=== PATIENT | male | born 1990 | race Two or more races ===

== ENCOUNTER 2025-01-19 15:20 | Inpatient (IN) | payer MEDICAID, OTHER ==
[~2025-01-19] VITALS: Ht 175.3 cm; Wt 115.0 kg
[2025-01-19] MEDS: HYDROcodone-ACET 5/325MG TAB PO ONE (15:45)
--- NOTE | 2025-01-19 15:52 | ED.PDOC ---
HPI (NEURO) HPI Comments This is a 34-year-old male with past medical history of seizure came to the hospital status post seizure. Per patient's , he was standing which suddenly start mumbling, and subsequently lost consciousness, fell and hit isn't on the ground. Per patient, he starts seeing flashes and subsequently lost consciousness. Per patient's , his eyes rolled back, but did not have jerky movement, no urine loss, and did not bite his tongue. Per patient he has recently under stress. He has seizure since 2 years. He also reports of mild headache and generalized weakness. He had denies fever, chest pain, shortness of breath, or any motor/sensory deficits. Home meds: Keppra 750 mg b.i.d., lamotrigine 200 mg b.i.d., Eslicarbamazepine 800 mg daily Social history: Denies smoking or any other drug use Chief Complaint: Seizure Time Seen by MD: 15:27 Mode of Arrival: Ambulatory Past Medical History Past Medical History (Other): Seizure Physical Exam General Appearance: No Apparent Distress, Normal HEENT: Normal ENT Inspection, Pharynx Normal, TMs Normal Neck: Full Range of Motion, Non-Tender, Normal, Normal Inspection Respiratory: Chest Non-Tender, Lungs Clear, No Accessory Muscle Use, No Respiratory Distress, Normal Breath Sounds Cardiovascular: No Edema, No JVD, No Murmur, No Gallop, Normal Peripheral Pulses, Regular Rate/Rhythm Breast Exam: Deferred Gastrointestinal: No Organomegaly, Non Tender, No Pulsatile Mass, Normal Bowel Sounds, Soft Genitalia: Deferred Pelvic: Deferred Rectal: Deferred Extremities: No calf tenderness, Normal capillary refill, Normal inspection, Normal range of motion, Non-tender, No pedal edema Musculoskeletal : Apperance: Normal Neurologic: Alert, tour consultant II-XII nml as Tested, No Motor Deficits, Normal Affect, Normal Mood, No Sensory Deficits Cerebellar Function: Normal Reflexes: Normal Skin: Dry, Normal Color, Warm Lymphatic: No Adenopathy Was a procedure done? Was a procedure done?: No Differential Diagnosis (SZ) Seizure: Encephalopathy, Epilepsy-Break Through X-Ray, Labs, Meds, VS Vital Signs Date Time Temp Pulse Resp B/P (MAP) Pulse Ox O2 Delivery O2 Flow Rate FiO2 01/19/25 17:11 67 01/19/25 16:36 70 22 96 Nasal Cannula* 2 28 01/19/25 16:36 70 22 117/72 (87) 96 01/19/25 16:15 Room Air* 0 21 01/19/25 15:21 98.1 59 18 131/76 95 98.1 Lab Test 01/19/25 17:56 01/19/25 16:28 Range/Units Urine Color Colorless Yellow Urine Clarity Clear Clear Urine pH 6.5 5.0-9.0 Urine Specific [place] 1.013 1.001-1.035 Urine Protein Negative Negative Urine Ketones Negative Negative Urine Blood Negative Negative /uL Urine Nitrite Negative Negative Urine Bilirubin Negative Negative Urine Urobilinogen Normal Negative mg/dL Urine Leukocyte Esterase Negative Negative /uL Urine RBC None seen 0 - 3 /hpf Urine Microscopic WBC 0-3 /HPF Urine Squamous Epithelial Cells None seen <5 /hpf Urine Bacteria None seen None Seen /hpf Urine Glucose Normal Normal mg/dL Urine Opiates Screen Neg NEGATIVE Urine Fentanyl Screen Neg NEGATIVE Urine Barbiturates Screen Neg NEGATIVE Urine Phencyclidine Screen Neg NEGATIVE Urine Amphetamines Screen Neg NEGATIVE Urine Benzodiazepines Screen Neg NEGATIVE Urine Cocaine Screen Neg NEGATIVE Urine Cannabinoids Screen Neg NEGATIVE White Blood Count 7.9 4.4-10.8 10^3/uL Red Blood Count 4.42 L 4.5-5.90 10^6/uL Hemoglobin 13.5 13.5-17.5 g/dL Hematocrit 39.0 L 41.0-53.0 % Mean Corpuscular Volume 88.2 80.0-100.0 fL Mean Corpuscular Hemoglobin 30.4 28.0-32.0 pg Mean Corpuscular Hemoglobin Concent 34.5 32.0-36.0 g/dL Red Cell Distribution Width 12.7 11.8-14.3 % Platelet Count 268 140-450 10^3/uL Mean Platelet Volume 7.1 6.9-10.8 fL Neutrophils (%) (Auto) 69.8 37.0-80.0 % Lymphocytes (%) (Auto) 21.0 10.0-50.0 % Monocytes (%) (Auto) 6.9 0.0-12.0 % Eosinophils (%) (Auto) 1.8 0.0-7.0 % Basophils (%) (Auto) 0.5 0.0-2.0 % Neutrophils # (Auto) 5.5 1.6-8.6 10 ^3/uL Lymphocytes # (Auto) 1.7 0.4-5.4 10 ^3/uL Monocytes # (Auto) 0.5 0-1.3 10 ^3/uL Eosinophils # (Auto) 0.1 0-0.8 10 ^3/uL Basophils # (Auto) 0 0-0.2 10 ^3/uL Nucleated Red Blood Cells 0.0 % Sodium Level 142 136-145 mmol/L Potassium Level 3.7 3.5-5.1 mmol/L Chloride Level 106 98-107 mmol/L Carbon Dioxide Level 29 20-31 mmol/L Anion Gap 7 5-15 Blood Urea Nitrogen 14 9-23 mg/dL Creatinine 0.96 0.700-1.30 mg/dL Glomerular Filtration Rate Calc 105 >90 mL/min BUN/Creatinine Ratio 14.6 10.0-20.0 Serum Glucose 112 H 74-106 mg/dL Calcium Level 8.9 8.7-10.4 mg/dL Magnesium Level 2.2 1.6-2.6 mg/dL Total Bilirubin 0.2 0.2-1.0 mg/dL Aspartate Amino Transferase (AST) 28 13-40 U/L Alanine Aminotransferase (ALT) 38 7-40 U/L Alkaline Phosphatase 62 46-116 U/L Total Protein 7.1 5.7-8.2 g/dL Albumin 4.3 3.2-4.8 g/dL Plasma/Serum Blood Alcohol < 3.0 <10 mg/dL Current Medications Medications (Trade) Dose Ordered Sig/Chris Route Start Time Stop Time Status Last Admin Lorazepam (Ativan Inj) 1 mg Q5MINP PRN IV 01/19/25 15:45 01/19/25 16:26 Levetiracetam 100 ml @ 400 mls/hr ONCE ONCE IV 01/19/25 15:45 01/19/25 16:11 DC 01/19/25 16:27 Acetaminophen/ Hydrocodone Bitart ([place] 5/325MG Tab) 1 tab ONCE ONCE PO 01/19/25 15:45 01/19/25 16:11 DC 01/19/25 15:45 Sodium Chloride 1,000 ml @ 1,000 mls/hr Q1H ONCE IV 01/19/25 15:45 01/19/25 16:44 DC 01/19/25 16:26 Time of 1ST Reevaluation: 17:00 Reevaluation 1ST: Unchanged Patient Education/Counseling: Diagnosis, Treatment, Prognosis, Need For Follow Up Family Education/Counseling: Diagnosis, Treatment, Prognosis, Need For Follow Up Comments Patient came to the hospital due to seizure. Patient was vitally stable. Patient was complaining of headache. Head CT scan performed. CBC and CMP checked. Patient was given Keppra, [place] and IV fluid Patient will be admitted for further management/workup in hospital. Departure 1 Departure Time of Disposition: 19:00 Impression: Primary Impression: Breakthrough seizure Disposition: ADMITTED INPATIENT Admit to: Tele Condition: Guarded Critical Care Note Critical Care Time?: No Stability Stability form required: No Heart Score Heart Score: Heart Score Response (Comments) Value History N/A 0 EKG N/A 0 Age N/A 0 Risk Factors N/A 0 Troponin N/A 0 Total 0 KARON LEONARD Jan 19, 2025 15:52
--- NOTE | 2025-01-19 16:24 | DVH ---
EXAM: CT HEAD WITHOUT CONTRAST INDICATION: fall TECHNIQUE: CT images of the head were obtained without administration of IV contrast. CT scans at [facility] facility use dose modulation, iterative reconstruction, and/or weight based dosing when appropriate to reduce radiation dose to as low as reasonably achievable. COMPARISON: None FINDINGS: PARENCHYMA: No acute hemorrhage. There is no mass effect, midline shift, or herniation. There is pres ervation of the zacarias white differentiation. Mild scattered hypoattenuation along the periventricular, centrum semiovale, and deep white matter tracts, which are nonspecific however statistically most li amy represent chronic microvascular ischemic change. VENTRICLES: No hydrocephalus. EXTRA-AXIAL SPACES: No extra-axial fluid collections. OTHER: The bony structures are intact. Visualized portions of the paranasal sinuses and mastoid air cells are clear. IMPRESSION: 1. No CT evidence of an acute intracranial abnormality.
[2025-01-19] MEDS: SODIUM CHLORIDE 0.9% 1,000 ML IV ONE (16:26)
[2025-01-19] MEDS: LORazepam 2MG/ML-1ML VIAL IV PRN (16:26)
[2025-01-19] MEDS: levETIRAcetam 1000 mg/100ml 100 ML IV ONE (16:27)
[2025-01-19 16:36] VITALS: PULSE 70; RESP 22; O2SAT 96
[2025-01-19 16:50] LABS: Hematocrit 39.0 % (41.0-53.0); Hemoglobin 13.5 g/dL (13.5-17.5); Mean Corpuscular Hemoglobin 30.4 pg (28.0-32.0); Mean Corpuscular Volume 88.2 fL (80.0-100.0); Nucleated Red Blood Cells % 0.0 %
[2025-01-19 17:04] LABS: Alanine Aminotransferase 38 U/L (7-40); Albumin 4.3 g/dL (3.2-4.8); Alkaline Phosphatase 62 U/L (46-116); Anion Gap 7 (5-15); BUN/Creatinine Ratio 14.6 (10.0-20.0); Blood Urea Nitrogen 14 mg/dL (9-23); Calcium 8.9 mg/dL (8.7-10.4); Carbon Dioxide 29 mmol/L (20-31); Chloride 106 mmol/L (98-107); Magnesium 2.2 mg/dL (1.6-2.6); Potassium 3.7 mmol/L (3.5-5.1); Sodium 142 mmol/L (136-145); Total Protein 7.1 g/dL (5.7-8.2)
[2025-01-19 17:05] LABS: Bilirubin, Total 0.2 mg/dL (0.2-1.0); Glucose 112 mg/dL (74-106)
[2025-01-19 18:24] LABS: Urine Protein, UAD Negative (Negative)
[2025-01-19 18:38] LABS: Opiate Scree,Urine Neg (NEGATIVE)
[2025-01-19 18:39] LABS: Amphetamine Screen, Urine Neg (NEGATIVE); Barbiturate Scree,Urine Neg (NEGATIVE); Benzodiazephine Screen, Urine Neg (NEGATIVE); Cannabinoid Screen, Urine Neg (NEGATIVE); Cocaine Screen, Urine Neg (NEGATIVE); Phencyclidine Screen, Urine Neg (NEGATIVE)
[2025-01-19] MEDS ORDERED: ONDANSETRON HCL 4 MG/2 ML VIAL IV PRN (19:45)
[2025-01-19] MEDS ORDERED: TEMAZEPAM 15 MG CAP PO PRN (19:45)
[2025-01-19] MEDS ORDERED: levETIRAcetam 500 MG TAB PO SCH (22:00)
[2025-01-19] MEDS ORDERED: lamoTRIgine 100 MG TAB PO SCH (22:00)
--- NOTE | 2025-01-19 22:02 | ECG ---
[facility] Test Date: 2025-01-19 Test Time: 17:11:09 Pat Name: NIKKI HUMPHREYS Department: Room: 0276 Gender: M [employer]: NIKITA : 1990 Requested By: KARON LEONARD Order Number: [id number] Reading MD: Adilson Uriostegui Measurements Intervals [place] Rate: 67 P: 11 LA: 158 QRS: 3 QRSD: 91 T: 18 QT: 413 QTc: 436 Interpretive Statements Sinus rhythm Electronically Signed On 01-26-2025 19:02:26 PDT by Adilson Uriostegui Please click the below link to view image of tracing.
[2025-01-19] MEDS: levETIRAcetam 500 MG TAB PO SCH ×2 (22:05→22:54)
[2025-01-19] MEDS: lamoTRIgine 100 MG TAB PO SCH (22:06)
--- NOTE | 2025-01-19 22:35 | DVHINCON2 ---
Date of service: Jan 19, 2025 Referring Physician Yannick Reason for Consultation Seizure History of Present Illness Mr. Tong is a 34 years old right-handed gentleman with a history of seizure disorder, he was brought to the [facility] on 01/19/2025 with a chief complaint of seizure activity. At that time he is alert and fully oriented, but he does not remember what happened today. The following history is obtained from him self and his girlfriend On 01/19/2025, when he was with his girlfriend, he suddenly mumble words, followed by falling down, and he has eyes deviated to the upper right corner, with nonresponsiveness or convulsion. The event was about 35 to 45 seconds, and the patient was confused for a few minutes before he was mentally recovered He has had similar events since 2014, this is his five days with similar symptoms in 2024. He saw a neurologist before, and he is on Keppra 750 mg b.i.d., lamotrigine 200 mg b.i.d., Eslicarbamazepine 800 mg daily. He denies treatment side effects. He reports a good compliance, he has no acute illness recently He denies a history of traumatic brain injury, intracranial infection One sister had seizure, which has completely resolved UDS, 01/19/2025: Negative Plasma alcohol, 01/19/2025: Less than three CBC, 01/19/2025: Unremarkable CMP, 01/19/2025: Unremarkable CT head, 01/19/2025: No CT evidence of an acute intracranial abnormality. Past Medical History Seizure Past Surgical History No surgeries Family History Diabetes, seizure Social History He was a tobacco smoker, no history of drug/alcohol abuse, he does not drive Allergies: Coded Allergies: NO KNOWN ALLERGIES (Unverified , 01/19/25) Current Medications Current Medications Medications (Trade) Dose Ordered Sig/Chris Route PRN Reason Start Time Stop Time Status Last Admin Lorazepam (Ativan Inj) 1 mg Q5MINP PRN IV SEIZURES 01/19/25 15:45 01/19/25 16:26 Levetiracetam (Keppra Tablet) 750 mg BID PO 01/19/25 22:00 01/19/25 19:45 DC Lamotrigine (LaMICtal TABLET) 200 mg Q12HR PO 01/19/25 22:00 01/19/25 19:45 DC Patient Own Medication 1 DAILY PO 01/20/25 10:00 01/19/25 19:50 DC Levetiracetam (Keppra Tablet) 750 mg BID PO 01/19/25 22:00 01/19/25 22:05 Lamotrigine (LaMICtal TABLET) 200 mg Q12HR PO 01/19/25 22:00 01/19/25 22:06 Patient Own Medication 800 mg DAILY PO 01/20/25 10:00 Temazepam (Restoril) 15 mg QHSP PRN PO FOR INSOMNIA 01/19/25 19:45 Ondansetron HCl (Zofran) 4 mg Q4HP PRN IV NAUSEA / VOMITING 01/19/25 19:45 Acetaminophen (Tylenol Tablet) 650 mg Q6HP PRN PO PAIN SCALE 1-3 OR TEMP>100.4 01/19/25 19:45 Review of Systems As above, the other systems are negative Vital Signs Vital Signs Date Time Temp Pulse Resp B/P (MAP) Pulse Ox O2 Delivery O2 Flow Rate FiO2 01/19/25 20:00 75 01/19/25 19:30 Room Air* 0 21 01/19/25 18:00 29 108/61 (77) 99 01/19/25 15:21 98.1 98.1 Physical Exam GENERAL EXAM: General: the patient is well developed and nourished. No acute distress. HEENT: Normocephalic, neck is supple, no carotid bruits. No mass. RESPIRATORY: Normal respiratory effort with symmetrical lung expansion. Lungs clear to auscultation. CARDIOVASCULAR: Regular rate and rhythm with no murmurs. S1, S2. ABDOMEN: Soft, nontender, normal bowel sound NEUROLOGICAL: MENTAL STATUS: Awake and alert. Oriented to person, place, time and general circumstances. Able to give personal history SPEECH, LANGUAGE, HIGHER CORTICAL FUNCTION: no aphasia or dysathria. CRANIAL NERVES: #2: Intact visual marrero to confrontation. The optic discs were sharp #3,4,6: Pupils are equal, round and reactive. EOMs full and conjugate. No nystagmus. #5: Facial sensation intact in all three divisions bilaterally. Mandibular strength intact. #7: Facial muscles symmetrical and strength intact. #8: Hearing grossly normal to voice. #9,10: Uvula and soft palate rise in the midline. Swallow and voice are normal. #11: Trapezius and sternomastoid strength intact bilaterally. #12: Tongue midline. No fasciculations or atrophy. SENSATION: Sensation to touch and pinprick is normal. MOTOR: Normal tone in the upper and lower extremity. Normal muscle bulk. No fasciculations. No abnormal movements or posturing. Muscle strength of the major groups in the upper extremities is 5/5. Muscle strength of the major groups in the lower extremities is 5/5. REFLEXES: Deep tendon reflexes normal and symmetrical. No pathological reflexes. CEREBELLAR/COORDINATION: Finger to nose and heel to [place] are normal bilaterally. GAIT/STATION: deferred. Labs/Diagnostic Data Labs Test 01/19/25 17:56 01/19/25 16:28 Range/Units Urine Color Colorless Yellow Urine Clarity Clear Clear Urine pH 6.5 5.0-9.0 Urine Specific [place] 1.013 1.001-1.035 Urine Protein Negative Negative Urine Ketones Negative Negative Urine Blood Negative Negative /uL Urine Nitrite Negative Negative Urine Bilirubin Negative Negative Urine Urobilinogen Normal Negative mg/dL Urine Leukocyte Esterase Negative Negative /uL Urine RBC None seen 0 - 3 /hpf Urine Microscopic WBC 0-3 /HPF Urine Squamous Epithelial Cells None seen <5 /hpf Urine Bacteria None seen None Seen /hpf Urine Glucose Normal Normal mg/dL Urine Opiates Screen Neg NEGATIVE Urine Fentanyl Screen Neg NEGATIVE Urine Barbiturates Screen Neg NEGATIVE Urine Phencyclidine Screen Neg NEGATIVE Urine Amphetamines Screen Neg NEGATIVE Urine Benzodiazepines Screen Neg NEGATIVE Urine Cocaine Screen Neg NEGATIVE Urine Cannabinoids Screen Neg NEGATIVE White Blood Count 7.9 4.4-10.8 10^3/uL Red Blood Count 4.42 L 4.5-5.90 10^6/uL Hemoglobin 13.5 13.5-17.5 g/dL Hematocrit 39.0 L 41.0-53.0 % Mean Corpuscular Volume 88.2 80.0-100.0 fL Mean Corpuscular Hemoglobin 30.4 28.0-32.0 pg Mean Corpuscular Hemoglobin Concent 34.5 32.0-36.0 g/dL Red Cell Distribution Width 12.7 11.8-14.3 % Platelet Count 268 140-450 10^3/uL Mean Platelet Volume 7.1 6.9-10.8 fL Neutrophils (%) (Auto) 69.8 37.0-80.0 % Lymphocytes (%) (Auto) 21.0 10.0-50.0 % Monocytes (%) (Auto) 6.9 0.0-12.0 % Eosinophils (%) (Auto) 1.8 0.0-7.0 % Basophils (%) (Auto) 0.5 0.0-2.0 % Neutrophils # (Auto) 5.5 1.6-8.6 10 ^3/uL Lymphocytes # (Auto) 1.7 0.4-5.4 10 ^3/uL Monocytes # (Auto) 0.5 0-1.3 10 ^3/uL Eosinophils # (Auto) 0.1 0-0.8 10 ^3/uL Basophils # (Auto) 0 0-0.2 10 ^3/uL Nucleated Red Blood Cells 0.0 % Sodium Level 142 136-145 mmol/L Potassium Level 3.7 3.5-5.1 mmol/L Chloride Level 106 98-107 mmol/L Carbon Dioxide Level 29 20-31 mmol/L Anion Gap 7 5-15 Blood Urea Nitrogen 14 9-23 mg/dL Creatinine 0.96 0.700-1.30 mg/dL Glomerular Filtration Rate Calc 105 >90 mL/min BUN/Creatinine Ratio 14.6 10.0-20.0 Serum Glucose 112 H 74-106 mg/dL Calcium Level 8.9 8.7-10.4 mg/dL Magnesium Level 2.2 1.6-2.6 mg/dL Total Bilirubin 0.2 0.2-1.0 mg/dL Aspartate Amino Transferase (AST) 28 13-40 U/L Alanine Aminotransferase (ALT) 38 7-40 U/L Alkaline Phosphatase 62 46-116 U/L Total Protein 7.1 5.7-8.2 g/dL Albumin 4.3 3.2-4.8 g/dL Plasma/Serum Blood Alcohol < 3.0 <10 mg/dL Assessment Partial complex seizure, poorly controlled Plan/Recommendation Monitoring [facility] Increase the Keppra to 1000 mg b.i.d. Lamotrigine 200 mg b.i.d. Eslicarbamazepine 800 mg daily Regular speak schedule to avoid sleep deprivation No alcohol No three strokes Avoid skipping medications He does not drive More recommendation per clinical course Prognosis: Poor This medical document was created using an electronic medical record system with [employer] computerized dictation system. Although this document has been carefully reviewed, there may still be some phonetic and typographical errors. These areas are purely typographical due to imperfections of the software programs, and do not reflect any compromise in the patient's medical care. Plan discussed with: Patient, Spouse, Other ARNOLDO SMITH MD Jan 19, 2025 22:35
--- NOTE | 2025-01-19 22:43 | DVHHP2 ---
History of Present Illness Reason for Visit: Seizure History of Present Illness 34-year-old male presents for evaluation of seizure activity. Patient had a witnessed seizure lasting approximately 45 seconds. Patient states patient was at the dinner table speaking with her when he fell to the ground hitting his hea d and his eyes just rolled back. No oral trauma or incontinence. Patient had another seizure five days ago. He reports being compliant with his antiseizure medications. Past Medical History Seizure Past Surgical History Denies Family History Noncontributory Smoke: No ALCOHOL: none Drugs: None Lives: with Family Review of Systems Review of Systems Review of systems are currently negative otherwise addressed in HPI. Allergies: Coded Allergies: NO KNOWN ALLERGIES (Unverified , 01/19/25) Medications Current Medications Medications Dose Ordered Sig/Chris Route Start Time Stop Time Status Last Admin Dose Admin Lorazepam 1 mg Q5MINP PRN IV 01/19/25 15:45 01/19/25 16:26 1 MG Lamotrigine 200 mg Q12HR PO 01/19/25 22:00 01/19/25 22:06 200 MG Patient Own Medication 800 mg DAILY PO 01/20/25 10:00 Temazepam 15 mg QHSP PRN PO 01/19/25 19:45 Ondansetron HCl 4 mg Q4HP PRN IV 01/19/25 19:45 Acetaminophen 650 mg Q6HP PRN PO 01/19/25 19:45 Levetiracetam 1,000 mg BID PO 01/19/25 22:30 Exam Vital Signs Vital Signs Date Time Temp Pulse Resp B/P (MAP) Pulse Ox O2 Delivery O2 Flow Rate FiO2 01/19/25 22:00 57 22 114/35 (61) 95 01/19/25 20:00 98.1 98.1 01/19/25 19:30 Room Air* 0 21 Exam Gen: 34-year-old male in mild distress. Skin: Warm, dry, normal color and texture, no rash. HEENT: Normocephalic atraumatic, mucous membranes moist and pink. Neck: Cervical and supraclavicular nodes normal without enlargement, trachea is midline, thyroid gland is normal without masses. Pulmonary: Clear to auscultation and percussion bilaterally. Cardiac: Regular rate and rhythm. No murmur Abdomen: Soft, nontender, nondistended, bowel sounds present all 4 quadrants, no guarding, no rigidity, no organomegaly. Extremities: No cyanosis, clubbing, no edema Neuro: Cranial nerves II through XII grossly intact, normal affect and speech, no focal motor deficits. Labs/Xrays ORDERING PHYSICIAN: KARON LEONARD PROCEDURE(s): HWOCT - HEAD WITHOUT CONTRAST REASON: fall ORDER NUMBER(s): [id number], ACCESSION NUMBER(s): [id number] EXAM: CT HEAD WITHOUT CONTRAST INDICATION: fall TECHNIQUE: CT images of the head were obtained without administration of IV contrast. CT scans at this facility use dose modulation, iterative reconstruction, and/or weight based dosing when appropriate to reduce radiation dose to as low as reasonably achievable. COMPARISON: None FINDINGS: PARENCHYMA: No acute hemorrhage. There is no mass effect, midline shift, or herniation. There is preservation of the zacarias white differentiation. Mild scattered hypoattenuation along the periventricular, centrum semiovale, and deep white matter tracts, which are nonspecific however statistically most likely represent chronic microvascular ischemic change. VENTRICLES: No hydrocephalus. EXTRA-AXIAL SPACES: No extra-axial fluid collections. OTHER: The bony structures are intact. Visualized portions of the paranasal sinuses and mastoid air cells are clear. IMPRESSION: 1. No CT evidence of an acute intracranial abnormality. Labs Test 01/19/25 17:56 01/19/25 16:28 Range/Units Urine Color Colorless Yellow Urine Clarity Clear Clear Urine pH 6.5 5.0-9.0 Urine Specific [place] 1.013 1.001-1.035 Urine Protein Negative Negative Urine Ketones Negative Negative Urine Blood Negative Negative /uL Urine Nitrite Negative Negative Urine Bilirubin Negative Negative Urine Urobilinogen Normal Negative mg/dL Urine Leukocyte Esterase Negative Negative /uL Urine RBC None seen 0 - 3 /hpf Urine Microscopic WBC 0-3 /HPF Urine Squamous Epithelial Cells None seen <5 /hpf Urine Bacteria None seen None Seen /hpf Urine Glucose Normal Normal mg/dL Urine Opiates Screen Neg NEGATIVE Urine Fentanyl Screen Neg NEGATIVE Urine Barbiturates Screen Neg NEGATIVE Urine Phencyclidine Screen Neg NEGATIVE Urine Amphetamines Screen Neg NEGATIVE Urine Benzodiazepines Screen Neg NEGATIVE Urine Cocaine Screen Neg NEGATIVE Urine Cannabinoids Screen Neg NEGATIVE White Blood Count 7.9 4.4-10.8 10^3/uL Red Blood Count 4.42 L 4.5-5.90 10^6/uL Hemoglobin 13.5 13.5-17.5 g/dL Hematocrit 39.0 L 41.0-53.0 % Mean Corpuscular Volume 88.2 80.0-100.0 fL Mean Corpuscular Hemoglobin 30.4 28.0-32.0 pg Mean Corpuscular Hemoglobin Concent 34.5 32.0-36.0 g/dL Red Cell Distribution Width 12.7 11.8-14.3 % Platelet Count 268 140-450 10^3/uL Mean Platelet Volume 7.1 6.9-10.8 fL Neutrophils (%) (Auto) 69.8 37.0-80.0 % Lymphocytes (%) (Auto) 21.0 10.0-50.0 % Monocytes (%) (Auto) 6.9 0.0-12.0 % Eosinophils (%) (Auto) 1.8 0.0-7.0 % Basophils (%) (Auto) 0.5 0.0-2.0 % Neutrophils # (Auto) 5.5 1.6-8.6 10 ^3/uL Lymphocytes # (Auto) 1.7 0.4-5.4 10 ^3/uL Monocytes # (Auto) 0.5 0-1.3 10 ^3/uL Eosinophils # (Auto) 0.1 0-0.8 10 ^3/uL Basophils # (Auto) 0 0-0.2 10 ^3/uL Nucleated Red Blood Cells 0.0 % Sodium Level 142 136-145 mmol/L Potassium Level 3.7 3.5-5.1 mmol/L Chloride Level 106 98-107 mmol/L Carbon Dioxide Level 29 20-31 mmol/L Anion Gap 7 5-15 Blood Urea Nitrogen 14 9-23 mg/dL Creatinine 0.96 0.700-1.30 mg/dL Glomerular Filtration Rate Calc 105 >90 mL/min BUN/Creatinine Ratio 14.6 10.0-20.0 Serum Glucose 112 H 74-106 mg/dL Calcium Level 8.9 8.7-10.4 mg/dL Magnesium Level 2.2 1.6-2.6 mg/dL Total Bilirubin 0.2 0.2-1.0 mg/dL Aspartate Amino Transferase (AST) 28 13-40 U/L Alanine Aminotransferase (ALT) 38 7-40 U/L Alkaline Phosphatase 62 46-116 U/L Total Protein 7.1 5.7-8.2 g/dL Albumin 4.3 3.2-4.8 g/dL Plasma/Serum Blood Alcohol < 3.0 <10 mg/dL SEPSIS Sepsis Screen Date sepsis recognized/suspect: Jan 19, 2025 Time Sepsis recognized/suspect: 1929 Recent Procedure: No On Antibiotic Therapy: No Respiratory Rate >20: No Heart Rate >90: No Temp<36 C (96.8 F) or >38.3 C: No SBP <90 or MAP <65 mmHG: No New Acute Mental Status Change: No Is the patient on CPAP, BIPAP,: No Physician Orders Head Without Contrast (01/19/25 15:31) Lorazepam 2mg/Ml Inj (Ativan Inj) (01/19/25 15:45) Lamotrigine Tablet (Lamictal Tablet) (01/19/25 22:00) (Nf) Eslicarbazepine Acetate (01/20/25 10:00) Regular Diet (01/20/25 Breakfast) Seizure Precautions (01/19/25 ) * Neurology Consult (01/19/25 19:36) Basic Metabolic Panel (01/20/25 04:00) Admit (01/19/25 19:36) Temazepam (Restoril) (01/19/25 19:45) Ondansetron Hcl (Zofran) (01/19/25 19:45) Condition: Stable (01/19/25 19:36) Acetaminophen Tablet (Tylenol Tablet) (01/19/25 19:45) Bedrest With Bathroom Privileg (01/19/25 19:36) Levetiracetam Tablet (Keppra Tablet) (01/19/25 22:30) Vital Signs Date Time Temp Pulse Resp B/P (MAP) Pulse Ox O2 Delivery O2 Flow Rate FiO2 01/19/25 22:00 57 22 114/35 (61) 95 01/19/25 20:00 75 01/19/25 20:00 98.1 60 19 114/35 (61) 93 98.1 01/19/25 19:30 Room Air* 0 21 01/19/25 18:00 79 29 108/61 (77) 99 01/19/25 17:11 67 01/19/25 16:36 70 22 96 Nasal Cannula* 2 28 01/19/25 16:36 70 22 117/72 (87) 96 01/19/25 16:15 Room Air* 0 21 01/19/25 15:21 98.1 59 18 131/76 95 98.1 Laboratory Tests Test 01/19/25 16:28 White Blood Count 7.9 10^3/uL (4.4-10.8) Medications Medications Dose Ordered Sig/Chris Route Start Time Stop Time Status Last Admin Dose Admin Acetaminophen/ Hydrocodone Bitart 1 tab ONCE ONCE PO 01/19/25 15:45 01/19/25 16:11 DC 01/19/25 15:45 1 TAB Lamotrigine 200 mg Q12HR PO 01/19/25 22:00 01/19/25 22:06 200 MG Levetiracetam 100 ml @ 400 mls/hr ONCE ONCE IV 01/19/25 15:45 01/19/25 16:11 DC 01/19/25 16:27 400 MLS/HR Levetiracetam 750 mg BID PO 01/19/25 22:00 01/19/25 22:31 DC 01/19/25 22:05 750 MG Lorazepam 1 mg Q5MINP PRN IV 01/19/25 15:45 01/19/25 16:26 1 MG Sodium Chloride 1,000 ml @ 1,000 mls/hr Q1H ONCE IV 01/19/25 15:45 01/19/25 16:44 DC 01/19/25 16:26 1,000 MLS/HR Assessment/Plan Assessment/Plan Assessment Breakthrough seizure Plan [facility] hospitalist Nephrology consultation Seizure precautions in place Resume home medications Continue treatment per orders Plan discussed with: Patient My Orders Orders - NIKKI RUBI Procedure Category Date Status Time Lamotrigine Tablet PHA 01/19/25 In Process (Lamictal Tablet) 22:00 (Nf) Eslicarbazepine PHA 01/20/25 In Process Acetate 10:00 Regular Diet DIET 01/20/25 Transmitted Breakfast Seizure Precautions ED NURSING 01/19/25 Transmitted * Neurology Consult CONS 01/19/25 Transmitted 19:36 Basic Metabolic Panel LAB 01/20/25 Verified 04:00 Admit ADMIT 01/19/25 Transmitted 19:36 Temazepam (Restoril) PHA 01/19/25 In Process 19:45 Ondansetron Hcl PHA 01/19/25 In Process (Zofran) 19:45 Condition: Stable JENNIFER 01/19/25 In Process 19:36 Acetaminophen Tablet PHA 01/19/25 In Process (Tylenol Tablet) 19:45 Bedrest With Bathroom JENNIFER 01/19/25 In Process Privileg 19:36 Date of Service: Jan 19, 2025 Billing Provider: NIKKI RUBI Common Visit Codes: [id number] INP/OBS CARE (HIGH) NIKKI RUBI Jan 19, 2025 22:43
[2025-01-19 22:55] VITALS: BP 110/83; PULSE 65; RESP 18; TEMP 97.2; O2SAT 96
[2025-01-19] MEDS ORDERED: LAMO200T2 PO (23:48)
[2025-01-19] MEDS ORDERED: LEVE500T40 PO (23:48)
[2025-01-19] MEDS ORDERED: ESLI1TAB4 PO (23:48)
[2025-01-20 01:00] VITALS: BP 110/56; PULSE 63; RESP 18; TEMP 97.4; O2SAT 95
[2025-01-20 05:01] VITALS: BP 114/67; PULSE 71; RESP 16; TEMP 98.3; O2SAT 96
[2025-01-20 08:30] VITALS: BP 114/80; PULSE 79; RESP 19; TEMP 97.9; O2SAT 95
[2025-01-20 09:38] LABS: Chloride 104 mmol/L (98-107); Potassium 4.1 mmol/L (3.5-5.1); Sodium 141 mmol/L (136-145)
[2025-01-20 09:39] LABS: Anion Gap 7 (5-15); Calcium 9.7 mg/dL (8.7-10.4); Carbon Dioxide 30 mmol/L (20-31)
[2025-01-20 09:44] LABS: BUN/Creatinine Ratio 9.2 (10.0-20.0); Blood Urea Nitrogen 9 mg/dL (9-23); Glucose 101 mg/dL (74-106)
[2025-01-20] MEDS: ESLICARBAZEPINE ACETATE 800 MG PO SCH (09:59)
[2025-01-20] MEDS ORDERED: PATIENTS OWN MEDICATION PO SCH (10:00)
--- NOTE | 2025-01-20 11:06 | DVHPN2 ---
Subjective The patient seen and examined at bedside. No seizure today. The patient compliance to medication at home. Reviewed: Care Plan, H&P, Labs, Medications, Previous Orders, Radiology Changes from previous H/P or p: No Changes Objective Vitals Vital Signs Date Time Temp Pulse Resp B/P (MAP) Pulse Ox O2 Delivery O2 Flow Rate FiO2 01/20/25 08:30 97.9 79 19 114/80 (91) 95 97.9 01/20/25 08:05 Room Air* 0 21 Intake/Output Intake and Output 01/20/25 07:00 Intake Total 1200 ml Balance 1200 ml Intake Oral 100 ml IV Total 1100 ml # Voids 1 General Appearance: Alert, Oriented X3, Cooperative, No acute distress HEENT: Atraumatic, PERRLA, EOMI, Mucous membr. moist/pink Neck: Supple Lungs: Clear to auscultation, Normal air movement Cardiovascular: Regular rate, Normal S1, Normal S2, No murmurs, Gallops, Rubs Abdomen: Normal bowel sounds, Soft, No tenderness Neuro: Cranial nerves 3-12 NL Psych/Mental Status: Mental status NL Medications Current Medications Medications Dose Ordered Sig/Chris Route Start Time Stop Time Status Last Admin Dose Admin Lorazepam 1 mg Q5MINP PRN IV 01/19/25 15:45 01/19/25 16:26 1 MG Lamotrigine 200 mg Q12HR PO 01/19/25 22:00 01/20/25 09:39 200 MG Patient Own Medication 800 mg DAILY PO 01/20/25 10:00 01/20/25 09:59 800 MG Temazepam 15 mg QHSP PRN PO 01/19/25 19:45 Ondansetron HCl 4 mg Q4HP PRN IV 01/19/25 19:45 Acetaminophen 650 mg Q6HP PRN PO 01/19/25 19:45 Levetiracetam 1,000 mg BID PO 01/19/25 22:30 01/20/25 09:39 1,000 MG Laboratory Results Laboratory Tests 01/19/25 16:28 01/20/25 09:00 Chemistry Test 01/19/25 16:28 01/20/25 09:00 Albumin 4.3 g/dL (3.2-4.8) Calcium Level 8.9 mg/dL (8.7-10.4) 9.7 mg/dL (8.7-10.4) Magnesium Level 2.2 mg/dL (1.6-2.6) Total Protein 7.1 g/dL (5.7-8.2) LFT Test 01/19/25 16:28 Alanine Aminotransferase (ALT) 38 U/L (7-40) Alkaline Phosphatase 62 U/L (46-116) Aspartate Amino Transferase (AST) 28 U/L (13-40) Total Bilirubin 0.2 mg/dL (0.2-1.0) Urinalysis Test 01/19/25 17:56 Urine Color Colorless (Yellow) Urine Clarity Clear (Clear) Urine pH 6.5 (5.0-9.0) Urine Specific [place] 1.013 (1.001-1.035) Urine Protein Negative (Negative) Urine Ketones Negative (Negative) Urine Blood Negative /uL (Negative) Urine Nitrite Negative (Negative) Urine Bilirubin Negative (Negative) Urine Urobilinogen Normal mg/dL (Negative) Urine Leukocyte Esterase Negative /uL (Negative) Urine RBC None seen /hpf (0 - 3) Urine Microscopic WBC /HPF (0-3) Urine Squamous Epithelial Cells None seen /hpf (<5) Urine Bacteria None seen /hpf (None Seen) Urine Glucose Normal mg/dL (Normal) Labs and/or images reviewed: Labs reviewed by me Assessment/Plan Assessment/Plan Breakthrough seizure COntinue current management. Increase keppra to 1000mg bid Continue lamictal 200mg daily Continue home med eslicarbarzepine Waiting for neurologist to see the patient. Plan discussed with: Patient Date of Service: Jan 20, 2025 Billing Provider: MARIANA SMITH MD Common Visit Codes: [id number] INP/OBS CARE(HIGH) MARIANA SMITH MD Jan 20, 2025 11:06
[2025-01-20 13:30] VITALS: BP 130/94; PULSE 82; RESP 18; TEMP 97.9; O2SAT 97
[2025-01-20 16:58] VITALS: BP 127/86; PULSE 97; RESP 18; TEMP 98.1; O2SAT 98
[2025-01-20] MEDS: ACETAMINOPHEN 325 MG TAB PO PRN (20:50)
[2025-01-20 21:00] VITALS: BP 117/77; PULSE 65; RESP 19; TEMP 97.3; O2SAT 96
--- NOTE | 2025-01-20 23:28 | DVHPN2 ---
Progress Note - Dictate Date Seen: Jan 20, 2025 Medical Necessity Reason Pt with a Central, PICC or Fol: No Subjective Mr. Tong is a 34 years old right-handed gentleman with a history of seizure disorder, he was brought to the [facility] on 01/19/2025 with a chief complaint of seizure activity. I have seen and examined the patient, discussed with his nurse, he is doing fine, no new complaint, no new seizure activity UDS, 01/19/2025: Negative Plasma alcohol, 01/19/2025: Less than three CBC, 01/19/2025: Unremarkable CMP, 01/19/2025: Unremarkable CT head, 01/19/2025: No CT evidence of an acute intracranial abnormality vital signs Vital Sign Date Time Temp Pulse Resp B/P (MAP) Pulse Ox O2 Delivery O2 Flow Rate FiO2 01/20/25 21:00 97.3 65 19 117/77 (90) 96 97.3 01/20/25 20:00 Room Air* 0 21 Total Intake and Output 01/19/25 01/19/25 01/20/25 15:00 23:00 07:00 Intake Total 1100 ml 100 ml Balance 1100 ml 100 ml medications Current Medications Medications Dose Ordered Sig/Chris Route Start Time Stop Time Status Last Admin Dose Admin Lorazepam 1 mg Q5MINP PRN IV 01/19/25 15:45 01/19/25 16:26 1 MG Lamotrigine 200 mg Q12HR PO 01/19/25 22:00 01/20/25 22:33 200 MG Patient Own Medication 800 mg DAILY PO 01/20/25 10:00 01/20/25 09:59 800 MG Temazepam 15 mg QHSP PRN PO 01/19/25 19:45 Ondansetron HCl 4 mg Q4HP PRN IV 01/19/25 19:45 Acetaminophen 650 mg Q6HP PRN PO 01/19/25 19:45 01/20/25 20:50 650 MG Levetiracetam 1,000 mg BID PO 01/19/25 22:30 01/20/25 22:34 1,000 MG objective General: the patient is well developed and nourished. No acute distress. MENTAL STATUS: Subjective SPEECH, LANGUAGE, HIGHER CORTICAL FUNCTION: no aphasia or dysathria. CRANIAL NERVES: Pupils are equal, round and reactive. EOMs full and conjugate. No nystagmus. Facial sensation intact in all three divisions bilaterally. Mandibular strength intact. Facial muscles symmetrical and strength intact. Tongue midline. No fasciculations or atrophy. SENSATION: Sensation to touch and pinprick is normal. MOTOR: Normal tone in the upper and lower extremity. Normal muscle bulk. No fasciculations. No abnormal movements or posturing. Muscle strength of the major groups in the extremities is 5/5. REFLEXES: Deep tendon reflexes normal and symmetrical. No pathological reflexes. CEREBELLAR/COORDINATION: Finger to nose and heel to [place] are normal bilaterally. GAIT/STATION: deferred. laboratory and microbiology Laboratory Tests 01/20/25 09:00 01/19/25 16:28 Test 01/20/25 09:00 Range/Units Serum Glucose 101 74-106 mg/dL Problem List Partial complex seizure, poorly controlled Assessment/Plan Monitoring Supportive treatment [facility] breakthrough Keppra 1000 mg b.i.d. Lamotrigine 200 mg b.i.d. Eslicarbamazepine 800 mg daily Regular speak schedule to avoid sleep deprivation No alcohol No three strokes Avoid skipping medications He does not drive More recommendation per clinical course This medical document was created using an electronic medical record system with [employer] dictation system. Although this document has been carefully reviewed, there may still be some phonetic and typographical errors. These areas are purely typographical due to imperfections of the software programs, and do not reflect any compromise in the patient's medical care. Prognosis poor Plan discussed with: Patient, Other ARNOLDO SMITH MD Jan 20, 2025 23:28
[2025-01-21 01:00] VITALS: BP 96/43; PULSE 65; RESP 17; TEMP 97.7; O2SAT 94
[2025-01-21 05:00] VITALS: BP 111/79; PULSE 70; RESP 18; TEMP 98; O2SAT 95
[2025-01-21 07:17] LABS: Anion Gap 8 (5-15); Carbon Dioxide 29 mmol/L (20-31); Chloride 104 mmol/L (98-107); Potassium 4.1 mmol/L (3.5-5.1); Sodium 141 mmol/L (136-145)
[2025-01-21 07:19] LABS: Calcium 9.7 mg/dL (8.7-10.4)
[2025-01-21 07:23] LABS: BUN/Creatinine Ratio 10.6 (10.0-20.0); Blood Urea Nitrogen 10 mg/dL (9-23); Glucose 93 mg/dL (74-106)
[2025-01-21 07:24] LABS: Hematocrit 42.5 % (41.0-53.0); Hemoglobin 14.8 g/dL (13.5-17.5); Mean Corpuscular Hemoglobin 30.6 pg (28.0-32.0); Mean Corpuscular Volume 87.6 fL (80.0-100.0); Nucleated Red Blood Cells % 0.0 %
[2025-01-21 08:00] VITALS: PULSE 77; RESP 18
[2025-01-21 09:00] VITALS: BP 106/82; PULSE 77; RESP 18; TEMP 97.9; O2SAT 95
--- NOTE | 2025-01-21 10:59 | DVHDS2 ---
Discharge Summary Date of Admission Jan 19, 2025 at 19:36 Date of Discharge: Jan 21, 2025 Admitting Diagnosis Breakthrough seizure Labs/Diagnostic Data: Laboratory Results Test 01/21/25 05:24 01/19/25 17:56 01/19/25 16:28 White Blood Count 7.7 10^3/uL (4.4-10.8) Red Blood Count 4.85 10^6/uL (4.5-5.90) Hemoglobin 14.8 g/dL (13.5-17.5) Hematocrit 42.5 % (41.0-53.0) Mean Corpuscular Volume 87.6 fL (80.0-100.0) Mean Corpuscular Hemoglobin 30.6 pg (28.0-32.0) Mean Corpuscular Hemoglobin Concent 34.9 g/dL (32.0-36.0) Red Cell Distribution Width 13.0 % (11.8-14.3) Platelet Count 269 10^3/uL (140-450) Mean Platelet Volume 7.3 fL (6.9-10.8) Neutrophils (%) (Auto) 74.5 % (37.0-80.0) Lymphocytes (%) (Auto) 17.2 % (10.0-50.0) Monocytes (%) (Auto) 6.6 % (0.0-12.0) Eosinophils (%) (Auto) 1.4 % (0.0-7.0) Basophils (%) (Auto) 0.3 % (0.0-2.0) Neutrophils # (Auto) 5.7 10 ^3/uL (1.6-8.6) Lymphocytes # (Auto) 1.3 10 ^3/uL (0.4-5.4) Monocytes # (Auto) 0.5 10 ^3/uL (0-1.3) Eosinophils # (Auto) 0.1 10 ^3/uL (0-0.8) Basophils # (Auto) 0 10 ^3/uL (0-0.2) Nucleated Red Blood Cells 0.0 % Sodium Level 141 mmol/L (136-145) Potassium Level 4.1 mmol/L (3.5-5.1) Chloride Level 104 mmol/L (98-107) Carbon Dioxide Level 29 mmol/L (20-31) Anion Gap 8 (5-15) Blood Urea Nitrogen 10 mg/dL (9-23) Creatinine 0.94 mg/dL (0.700-1.30) Glomerular Filtration Rate Calc 108 mL/min (>90) BUN/Creatinine Ratio 10.6 (10.0-20.0) Serum Glucose 93 mg/dL (74-106) Calcium Level 9.7 mg/dL (8.7-10.4) Urine Color Colorless (Yellow) Urine Clarity Clear (Clear) Urine pH 6.5 (5.0-9.0) Urine Specific [place] 1.013 (1.001-1.035) Urine Protein Negative (Negative) Urine Ketones Negative (Negative) Urine Blood Negative /uL (Negative) Urine Nitrite Negative (Negative) Urine Bilirubin Negative (Negative) Urine Urobilinogen Normal mg/dL (Negative) Urine Leukocyte Esterase Negative /uL (Negative) Urine RBC None seen /hpf (0 - 3) Urine Microscopic WBC /HPF (0-3) Urine Squamous Epithelial Cells None seen /hpf (<5) Urine Bacteria None seen /hpf (None Seen) Urine Glucose Normal mg/dL (Normal) Urine Opiates Screen Neg (NEGATIVE) Urine Fentanyl Screen Neg (NEGATIVE) Urine Barbiturates Screen Neg (NEGATIVE) Urine Phencyclidine Screen Neg (NEGATIVE) Urine Amphetamines Screen Neg (NEGATIVE) Urine Benzodiazepines Screen Neg (NEGATIVE) Urine Cocaine Screen Neg (NEGATIVE) Urine Cannabinoids Screen Neg (NEGATIVE) Magnesium Level 2.2 mg/dL (1.6-2.6) Total Bilirubin 0.2 mg/dL (0.2-1.0) Aspartate Amino Transferase (AST) 28 U/L (13-40) Alanine Aminotransferase (ALT) 38 U/L (7-40) Alkaline Phosphatase 62 U/L (46-116) Total Protein 7.1 g/dL (5.7-8.2) Albumin 4.3 g/dL (3.2-4.8) Plasma/Serum Blood Alcohol < 3.0 mg/dL (<10) Other Laboratory Tests 01/21/25 05:24 Brief Hx & Hospital Course: This is a 34 years old male come into emergency department because of seizure activity. The patient had a witness seizure lasting about 45 seconds. The patient stated he was at the dinner table speaking with someone when he fell on the ground and hitting his head in his eye just rolled back. No oral trauma or incontinence. The patient also had another seizure five days prior to this seizure. The patient reports being compliant with his antiseizure medications. The patient on Keppra 750 mg twice per day, Lamictal he does not remember the doses. And one more medication. The patient was admitted. The patient was started on Keppra a 1000 mg p.o. b.i.d.. The patient also continuing Lamictal 200 mg p.o. b.i.d. and eslicarbazapine 800mg daily. Dr. De La Cruz see the patient and recommend the patient to started on new regimen. Recommend the patient to follow up with him as outpatient. Activity as tolerated, do not drive. Diet per home diet. Physical exam: HEENT: Normocephalic atraumatic pupils equal react to light and accommodation. Extraocular muscles intact, conjunctiva pink, oropharynx moist, no thrush, no exudate. Lymphatic: No lymphadenopathy Cardiovascular exam: S1, S2 was heard. No murmurs, rubs, gallops Lung: Clear on auscultation bilaterally, no wheeze, rale, rhonchi. GI: Abdominal soft, nondistended, nontenderness, positive bowel sounds. Extremity: No crepitus, cyanosis, edema. Pedal pulses present bilateral. Full range of motion. Skin: Normal turgor, no rash. Psych: Alert, oriented x3. Neurology: No focal deficits, cranial nerve II to XII grossly intact. This medical document was created using an electronic medical record system with [employer] computerized dictation system. Although this document has been carefully reviewed, there may still be some phonetic and typographical errors. These areas are purely typographical due to imperfections of the software programs, and do not reflect any compromise in the patient's medical care. Condition at Discharge: Stable Final Diagnosis/Problems List Breakthrough seizure Discharge Disposition: Home Discharge Instruct/Medications Diet: Regular Activity: No Restrictions, As Tolerated Follow Up/Referral: PCP 1-2 weeks Neurology per schedule Medications: See med list Scheduled Eslicarbazepine Acetate (Aptiom), 800 MG PO DAILY Lamotrigine (Lamictal), 1 TAB PO BID Levetiracetam (Keppra), 1 TAB PO BID Discontinued Medications Levetiracetam (Keppra), 750 MG PO BID, (Reported) Discharge Statement: "Patient was advised to return to the ER or call 911 if any headaches, dizziness, shortness of breath, chest pain, abdominal pain, bleeding, fevers, or worsening of medical condition. Patient was counseled about treatment plan, medications, possible side effects, patientverbalized understanding. All questions were answered to the best of my ability. This discharge took greater then 30 minutes in planning, reviewing documentation, counseling the patient, and discussing with other team members." ASSESSMENT ASSESSMENT Assessment Date of Service: Jan 21, 2025 Billing Provider: MARIANA SMITH MD Common Visit Codes: [id number] DISCH DAY >30min MARIANA SMITH MD Jan 21, 2025 10:58
[2025-01-21] MEDS ORDERED: LEVE100012 PO (11:00)
[2025-01-21] MEDS ORDERED: LAMO200T2 PO (11:00)
[2025-01-21] MEDS ORDERED: ESLI1TAB4 PO (11:00)
[2025-01-21 11:58] VITALS: BP 106/82; PULSE 77; RESP 18; TEMP 36.6; O2SAT 95
== END 2025-01-21 12:52 | disposition home or self-care (01) | DRG 53 ==
LOC: ER 15:20 → OVERFLOW 19:36 → WEST WING 22:42
PROVIDERS: ADMIT Internal Medicine; ATTEND Internal Medicine
DX: G40.209 Localization-related (focal) (partial) symptomatic epilepsy and epileptic syndromes with complex partial seizures, not intractable, without status epilepticus (principal); Z79.899 Other long term (current) drug therapy; Z83.3 Family history of diabetes mellitus; Z87.891 Personal history of nicotine dependence
CPT/HCPCS: 36415; 70450; 80048; 80053; 80307; 80320; 81001; 83735; 85025; 93005; 96365; 96375; G0378

== ENCOUNTER 2025-03-30 08:21 | Emergency (ER) | payer MEDICAID ==
[~2025-03-30] VITALS: Ht 175.3 cm; Wt 110.0 kg
[~2025-03-30 08:21] MED LIST: ESLI1TAB4 PO; LAMO200T2 PO; LEVE100012 PO
[2025-03-30 08:35] VITALS: TEMP 98.3
[2025-03-30] MEDS: levETIRAcetam 1000 mg/100ml 100 ML IV ONE (09:00)
--- NOTE | 2025-03-30 09:09 | ED.PDOC ---
History of Present Illness HPI Comments This is a 34-year-old male who comes in with chief complaint of seizure activity. The patient was brought by his mom after having a seizure lasting an unknown period of time. Currently the patient is on Keppra and Lamictal and states that he does take his medication as directed. He is complaining of a headache and also suffered a fairly severe tongue laceration. There has been no vomiting or diarrhea. There has been no fever or chills. Chief Complaint: Seizure Time Seen by MD: 08:23 Reviewed Notes: Nurses Notes, Medications, Allergies (No allergies to medications) Allergies: Coded Allergies: NO KNOWN ALLERGIES (Unverified , 01/19/25) Home Meds Active Scripts Levetiracetam (Keppra) 1,000 Mg Tab, 1 TAB PO BID, #60 TAB 5 Refills Prov:MARIANA SMITH MD 01/21/25 Eslicarbazepine Acetate (Aptiom) 800 Mg Tab, 800 MG PO DAILY, #60 TAB 5 Refills Prov:MARIANA SMITH MD 01/21/25 Lamotrigine (Lamictal) 200 Mg Tab, 1 TAB PO BID, #60 TAB 5 Refills Prov:MARIANA SMITH MD 01/21/25 Information Source: Patient Mode of Arrival: Ambulatory Severity: Moderate Timing: Minutes Duration: Minutes Prehospital treatment: Document Imaging Specialist Associated signs and symptoms Seizure activity with headache and tongue laceration Past Medical History PAST MEDICAL HISTORY: Seizures Surgical History: Denies all surgeries Family History Family History: No family hx of Cancer, No family hx of DM, No family hx of Heart julian Social History Smoker: Non-Smoker Alcohol: Denies ETOH Use Drugs: Denies Drug Use Lives In: Home Constitutional: denies: chills, diaphoresis, fatigue, fever, malaise, sweats, weakness, others EENTM: denies: blurred vision, double vision, ear bleeding, ear discharge, ear drainage, ear pain, ear ringing, eye pain, eye redness, hearing loss, mouth pain, mouth swelling, nasal discharge, nose bleeding, nose congestion, nose pain, photophobia, tearing, throat pain, throat swelling, voice changes, others Respiratory: denies: cough, hemoptysis, orthopnea, SOB at rest, shortness of breath, SOB with excertion, stridor, wheezing, others Cardiovascular: denies: chest pain, dizzy spells, diaphoresis, Dyspnea on exertion, edema, irregular heart beat, left arm pain, lightheadedness, palpitations, PND, syncope, others Gastrointestinal: denies: abdomen distended, abdominal pain, blood streaked bowels, constipated, diarrhea, dysphagia, difficulty swallowing, hematemesis, melena, nausea, poor appetite, poor fluid intake, rectal bleeding, rectal pain, vomiting, others Genitourinary: denies: burning, dysuria, flank pain, frequency, hematuria, incontinence, penile discharge, penile sore, pain, testicle pain, testicle swelling, urgency, others Neurological: reports: seizure; denies: dizziness, fainting, headache, left sided numbness, left sided weakness, numbness, paresthesia, pre-existing deficit, right sided numbness, right sided weakness, speech problems, tingling, tremors, weakness, others Musculoskeletal: denies: back pain, gout, joint pain, joint swelling, muscle pain, muscle stiffness, neck pain, others Integumetry: reports: laceration (Large tongue laceration); denies: bruises, change in color, change in hair/nails, dryness, lesions, lumps, rash, wounds, others Allergic/Immunocompromised: denies: Difficulty Healing, Frequent Infections, Hives, Itching, others Hematologic/Lymphatic: denies: anemia, blood clots, easy bleeding, easy b ruising, swollen glands, others Endocrine: denies: excessive hunger, excessive sweating, excessive thirst, excessive urination, flushing, intolerance to cold, intolerance to heat, unexplained weight gain, unexplained weight loss, others Psychiatric: denies: anxiety, bipolar disorder, depression, hopeless, panic disorder, schizophrenia, sleepless, suicidal, others Physical Exam General Appearance: Moderate Distress HEENT: Normal ENT Inspection, Pharynx Normal, TMs Normal Neck: Full Range of Motion, Non-Tender, Normal, Normal Inspection Respiratory: Chest Non-Tender, Lungs Clear, No Accessory Muscle Use, No Respiratory Distress, Normal Breath Sounds Cardiovascular: No Edema, No JVD, No Murmur, No Gallop, Normal Peripheral Pulses, Regular Rate/Rhythm Breast Exam: Deferred Gastrointestinal: No Organomegaly, Non Tender, No Pulsatile Mass, Normal Bowel Sounds, Soft Genitalia: Deferred Pelvic: Deferred Rectal: Deferred Extremities: No calf tenderness, Normal capillary refill, No pedal edema Musculoskeletal : Apperance: Normal Neurologic: Alert, anesthesia director II-XII nml as Tested, No Motor Deficits, Normal Affect, Normal Mood, No Sensory Deficits Cerebellar Function: Normal Reflexes: Normal Skin: Dry, Lacerations (3 cm tongue laceration ), Normal Color, Warm Lymphatic: No Adenopathy Was a procedure done? Was a procedure done?: Yes Sedation Sedation?: No Informed consent obtained: Yes Laceration Repair : Location Tongue Length 4 cm Anesthetic: Lidocaine, Without epi Laceration Repair Prep: Saline Laceration Repair Wound Comple: epidermis/dermis repair Laceration Repair: Number of sutures (Seven sutures), Layers Closed (Single- layer), Size (4-0 Vicryl), Vicryl, Simple Informed consent obtained: No Risks, benefits, and alternati: No Differential Dx Considerations may include: Breakthrough seizure, tongue laceration, generalized weakness, syncope X-Ray, Labs, Meds, VS Vital Signs Date Time Temp Pulse Resp B/P (MAP) Pulse Ox O2 Delivery O2 Flow Rate FiO2 03/30/25 12:17 81 03/30/25 09:00 81 03/30/25 08:35 98.3 91 17 123/81 (95) 91 98.3 03/30/25 08:35 Room Air* 0 21 03/30/25 08:24 97.6 83 16 153/92 97 97.6 Lab Test 03/30/25 12:40 03/30/25 09:11 Range/Units Urine Opiates Screen Neg NEGATIVE Urine Fentanyl Screen Neg NEGATIVE Urine Barbiturates Screen Neg NEGATIVE Urine Phencyclidine Screen Neg NEGATIVE Urine Amphetamines Screen Neg NEGATIVE Urine Benzodiazepines Screen Neg NEGATIVE Urine Cocaine Screen Neg NEGATIVE Urine Cannabinoids Screen Neg NEGATIVE White Blood Count 5.4 4.4-10.8 10^3/uL Red Blood Count 4.71 4.5-5.90 10^6/uL Hemoglobin 14.3 13.5-17.5 g/dL Hematocrit 41.2 41.0-53.0 % Mean Corpuscular Volume 87.6 80.0-100.0 fL Mean Corpuscular Hemoglobin 30.4 28.0-32.0 pg Mean Corpuscular Hemoglobin Concent 34.7 32.0-36.0 g/dL Red Cell Distribution Width 13.2 11.8-14.3 % Platelet Count 205 140-450 10^3/uL Mean Platelet Volume 7.3 6.9-10.8 fL Neutrophils (%) (Auto) 70.0 37.0-80.0 % Lymphocytes (%) (Auto) 21.1 10.0-50.0 % Monocytes (%) (Auto) 6.5 0.0-12.0 % Eosinophils (%) (Auto) 2.0 0.0-7.0 % Basophils (%) (Auto) 0.4 0.0-2.0 % Neutrophils # (Auto) 3.8 1.6-8.6 10 ^3/uL Lymphocytes # (Auto) 1.1 0.4-5.4 10 ^3/uL Monocytes # (Auto) 0.3 0-1.3 10 ^3/uL Eosinophils # (Auto) 0.1 0-0.8 10 ^3/uL Basophils # (Auto) 0 0-0.2 10 ^3/uL Nucleated Red Blood Cells 0.1 % Sodium Level 141 136-145 mmol/L Potassium Level 4.2 3.5-5.1 mmol/L Chloride Level 102 98-107 mmol/L Carbon Dioxide Level 31 20-31 mmol/L Anion Gap 8 5-15 Blood Urea Nitrogen 9 9-23 mg/dL Creatinine 0.95 0.700-1.30 mg/dL Glomerular Filtration Rate Calc 106 >90 mL/min BUN/Creatinine Ratio 9.5 L 10.0-20.0 Serum Glucose 117 H 74-106 mg/dL Calcium Level 9.4 8.7-10.4 mg/dL Plasma/Serum Blood Alcohol < 3.0 <10 mg/dL Current Medications Medications (Trade) Dose Ordered Sig/Chris Route Start Time Stop Time Status Last Admin Levetiracetam 100 ml @ 400 mls/hr ONCE ONCE IV 03/30/25 08:45 03/30/25 08:59 DC 03/30/25 09:00 Acetaminophen/ Hydrocodone Bitart ([place] 5/325MG Tab) 1 tab ONCE ONCE PO 03/30/25 13:30 03/30/25 13:31 DC 03/30/25 13:41 IMPRESSION: NO ACUTE INTRACRANIAL ABNORMALITY SEEN. The patient's CBC is within normal limits The chemistry panel is within normal limits The patient was given Keppra 1 g IV piggyback The urine tox is negative The patient tolerated the procedure well. The patient is discharged Images Reviewed?: Images reviewed and evaluated by me Time of 1ST Reevaluation: 09:01 Reevaluation 1ST: Unchanged Patient Education/Counseling: Diagnosis, Treatment, Prognosis, Need For Follow Up Family Education/Counseling: Diagnosis, Treatment, Prognosis, Need For Follow Up SEPSIS Sepsis Screen Date sepsis recognized/suspect: Mar 30, 2025 Time Sepsis recognized/suspect: 829 Recent Procedure: No On Antibiotic Therapy: No Respiratory Rate >20: No Heart Rate >90: No Temp<36 C (96.8 F) or >38.3 C: No SBP <90 or MAP <65 mmHG: No New Acute Mental Status Change: No Is the patient on CPAP, BIPAP,: No Physician Orders Pulse Oximetry (03/30/25 08:34) Blood Pressure (03/30/25 08:34) Heplock Iv (03/30/25 08:34) Seizure Precautions (03/30/25 08:34) Document Imaging Specialist (03/30/25 08:34) Electrocardigram (03/30/25 08:34) Head Without Contrast (03/30/25 08:34) Monocryl 4.0 (03/30/25 08:34) 4X4 (03/30/25 08:34) Sterile Gloves (03/30/25 08:34) Lac Tray (03/30/25 08:34) Vital Signs Date Time Temp Pulse Resp B/P (MAP) Pulse Ox O2 Delivery O2 Flow Rate FiO2 03/30/25 12:17 81 03/30/25 09:00 81 03/30/25 08:35 98.3 91 17 123/81 (95) 91 98.3 03/30/25 08:35 Room Air* 0 21 03/30/25 08:24 97.6 83 16 153/92 97 97.6 Laboratory Tests Test 03/30/25 09:11 White Blood Count 5.4 10^3/uL (4.4-10.8) Medications Medications Dose Ordered Sig/Chris Route Start Time Stop Time Status Last Admin Dose Admin Acetaminophen/ Hydrocodone Bitart 1 tab ONCE ONCE PO 03/30/25 13:30 03/30/25 13:31 DC 03/30/25 13:41 Levetiracetam 100 ml @ 400 mls/hr ONCE ONCE IV 03/30/25 08:45 03/30/25 08:59 DC 03/30/25 09:00 Departure 1 Departure Time of Disposition: 13:53 Impression: Primary Impression: Breakthrough seizure Additional Impression: Tongue laceration Qualified Codes: S01.512A - Laceration without foreign body of oral cavity, initial encounter Disposition: HOME / SELF CARE / HOMELESS Condition: Fair Discharged With: Self Critical Care Note Critical Care Time?: No Stability Stability form required: No Heart Score Heart Score: Heart Score Response (Comments) Value History N/A 0 EKG N/A 0 Age N/A 0 Risk Factors N/A 0 Troponin N/A 0 Total 0 I personally scribed for SHIVA DODSON MD ([email or web address]) on 03/30/25 at 09:27. Electronically submitted by Magaly Hall ([email or web address]). SHIVA DODSON MD Mar 30, 2025 09:09
--- NOTE | 2025-03-30 09:12 | DVH ---
CLINICAL HISTORY: seizure TECHNIQUE: Helical scanning was performed of the head from the skull base to the vertex. Multiplanar reconstructions were performed. This exam was performed according to our departmental dose optimization program. Up-to-date CT equipment and radiation dose reduction techniques are utilized as appropriate. CTDI 59 DLP 1040 COMPARISON: CT HEAD WITHOUT CONTRAST on DOS: 01/19/25 FINDINGS: There is no evidence for acute intracranial hemorrhage, acute ischemic changes, mass, mass effect, or extra-axial fluid collection. There is no hydrocephalus or midline shift. There is no effacement of the cerebral sulci and basal subarachnoid cisterns. The zacarias-white matter differentiation is well maintained. The imaged paranasal sinuses are clear. IMPRESSION: NO ACUTE INTRACRANIAL ABNORMALITY SEEN.
[2025-03-30 09:39] LABS: Chloride 102 mmol/L (98-107); Hematocrit 41.2 % (41.0-53.0); Hemoglobin 14.3 g/dL (13.5-17.5); Mean Corpuscular Hemoglobin 30.4 pg (28.0-32.0); Mean Corpuscular Volume 87.6 fL (80.0-100.0); Nucleated Red Blood Cells % 0.1 %; Potassium 4.2 mmol/L (3.5-5.1); Sodium 141 mmol/L (136-145)
[2025-03-30 09:40] LABS: Anion Gap 8 (5-15); Calcium 9.4 mg/dL (8.7-10.4); Carbon Dioxide 31 mmol/L (20-31)
[2025-03-30 09:45] LABS: BUN/Creatinine Ratio 9.5 (10.0-20.0)
[2025-03-30 09:53] LABS: Blood Urea Nitrogen 9 mg/dL (9-23); Glucose 117 mg/dL (74-106)
[2025-03-30] MEDS: LIDOCAINE 1% (LOCAL ANESTH.) PF 5ml SDV ID ONE (11:21)
[2025-03-30 13:08] LABS: Amphetamine Screen, Urine Neg (NEGATIVE); Barbiturate Scree,Urine Neg (NEGATIVE); Benzodiazephine Screen, Urine Neg (NEGATIVE); Cannabinoid Screen, Urine Neg (NEGATIVE); Cocaine Screen, Urine Neg (NEGATIVE); Opiate Scree,Urine Neg (NEGATIVE); Phencyclidine Screen, Urine Neg (NEGATIVE)
[2025-03-30] MEDS: HYDROcodone-ACET 5/325MG TAB PO ONE (13:41)
[2025-03-30 14:20] VITALS: BP 104/77; PULSE 73; RESP 14; O2SAT 98
== END 2025-03-30 14:17 | disposition home or self-care (01) ==
LOC: ER 08:21
DX: S01.512A Laceration without foreign body of oral cavity, initial encounter (principal); G40.909 Epilepsy, unspecified, not intractable, without status epilepticus; Z79.899 Other long term (current) drug therapy; X58.XXXA Exposure to other specified factors, initial encounter; Y93.89 Activity, other specified; Y92.89 Other specified places as the place of occurrence of the external cause; Y99.8 Other external cause status
CPT/HCPCS: 12013; 36415; 70450; 80048; 80307; 80320; 85025; 96374; 99285; A4649; J1953